=== PATIENT | female | born 1955 | race Two or more races ===

== ENCOUNTER 2020-03-19 14:36 | Emergency (ER) | payer MEDICAID ==
[2020-03-19 15:21] VITALS: BP 141/79
[2020-03-19] MEDS ORDERED: cefTRIAXone SOD 1,000 MG VL IM ONE (15:45)
== END 2020-03-19 16:30 | disposition home or self-care (01) ==
LOC: ER 14:36
DX: L03.012 Cellulitis of left finger (principal); E11.9 Type 2 diabetes mellitus without complications; E78.5 Hyperlipidemia, unspecified; I10 Essential (primary) hypertension; Z90.710 Acquired absence of both cervix and uterus
CPT/HCPCS: 96372; 99283; J0696